=== PATIENT | female | born 1955 | race Caucasian/White ===

== ENCOUNTER 2018-09-18 08:51 | Day surgery (SDC) | payer OTHER ==
[2018-09-17 10:04] VITALS: BMI 21.5
--- NOTE | 2018-09-17 22:37 | HP ---
HISTORY OF PRESENT ILLNESS: Ms. Marlin Montiel is a very pleasant 63-year- old female comes in for a colonoscopy because of chronic diarrhea. The patient has been having diarrhea over the last several months. Stools are soft to watery. She has had stool studies negative, which came back negative for any pathology. She also empirically treated with some antibiotics. The patient has this diarrhea with some lower abdominal cramping off and on. There is no history of any weight loss. No history of any dysuria. The patient had colonoscopy I believe 5 years ago. This exam was negative. There is no family history of colon cancer. The patient is undergoing colonoscopy because of chronic diarrhea. ALLERGIES: NONE. SOCIAL HISTORY: The patient does not smoke or drink alcohol socially. MEDICAL ILLNESSES: 1. Depression. 2. Hyperlipidemia. 3. Tubal ligation. 4. D and C. PHYSICAL EXAMINATION: GENERAL: She is thin built, appears comfortable. VITAL SIGNS: Pulse is 72, blood pressure 110/76. CARDIOVASCULAR: First and second heart sounds. LUNGS: Clear to auscultation. ABDOMEN: Soft. No organomegaly. No tenderness. No masses. ADMITTING DIAGNOSIS: Chronic diarrhea. PLAN: Colonoscopy. Job ID: [id number] [facility]
--- NOTE | 2018-09-18 11:45 | OP ---
DATE OF PROCEDURE: 09/18/2018 PROCEDURE PERFORMED: Colonoscopy with biopsy. PREOPERATIVE DIAGNOSES: Chronic diarrhea, negative stool exam, undergoing colonoscopy. POSTOPERATIVE DIAGNOSES: Mild colitis in the rectum and lower sigmoid colon area. Otherwise, the mucosa appeared normal. Although, the patient has a history of diarrhea, she had quite a bit of fecal material coating the mucosa throughout the colon. DESCRIPTION OF PROCEDURE: The patient was placed on her left lateral position and was given sedation by Anesthesia Department. A rectal exam was done before the scope was advanced into the rectum. No lesions felt on rectal exam. A [employer]ax video colonoscope was introduced into the rectum and advanced all the way into the cecum. Although, the patient had a history of chronic diarrhea, on endoscopy, she had large amount of fecal material coating the mucosa. Water was irrigated and washed out. The appendiceal orifice, ileocecal wall, cecum, no pathology seen. Withdrawal of scope in the cecum to ascending colon, hepatic flexure, no pathology seen. The transverse colon, splenic flexure, descending colon, no pathology seen. She had colitis over the lower sigmoid colon area and rectum, the patchy mucosal edema, erythema , and occasional ulceration. A biopsy obtained from the area. Rectum showed hemorrhoids. DISCHARGE PLANNING: This is a 63-year-old female with chronic diarrhea over the last several months. She has had negative stool studies. She came for colonoscopy and was found to have colitis. This appeared mild over the rectum and also lower sigmoid. Biopsies were obtained. DISCHARGE RECOMMENDATIONS: 1. We will await the colonic biopsy. 2. Resume all medications as before. 3. To come back in 2 weeks. Job ID: [id number] [facility]
[2018-09-18] MEDS ORDERED: PROPOFOL 200 MG/20 ML VIAL ONE (14:48)
[2018-09-18] MEDS ORDERED: Lidocaine 1% PF 5 ML VIAL ONE (14:48)
--- NOTE | 2018-09-21 09:32 | OP ---
DATE OF PROCEDURE: ADDENDUM: Please add in the dictation that she had random biopsies obtained from the ascending colon, transverse colon to rule out microscopic colitis. Job ID: [id number]
== END 2018-09-18 11:13 | disposition home or self-care (01) ==
LOC: SDC 08:51
PROVIDERS: ATTEND Internal Medicine Gastroenterology
PROC: 0DBK8ZX Excision of Ascending Colon, Via Natural or Artificial Opening Endoscopic, Diagnostic (ICD-10-PCS; principal; 2018-09-18)
PROC: 0DBL8ZX Excision of Transverse Colon, Via Natural or Artificial Opening Endoscopic, Diagnostic (ICD-10-PCS; principal; 2018-09-18)
PROC: 0DBN8ZX Excision of Sigmoid Colon, Via Natural or Artificial Opening Endoscopic, Diagnostic (ICD-10-PCS; principal; 2018-09-18)
DX: K52.832 Lymphocytic colitis (principal); K64.9 Unspecified hemorrhoids; F32.9 Major depressive disorder, single episode, unspecified; E78.5 Hyperlipidemia, unspecified; Z98.51 Tubal ligation status; Z79.82 Long term (current) use of aspirin; Z79.899 Other long term (current) drug therapy; Z98.890 Other specified postprocedural states
CPT/HCPCS: 88305; J2001; J2704

== ENCOUNTER 2019-07-13 10:16 | Outpatient (CLI) | payer OTHER ==
--- NOTE | 2019-07-13 10:55 | RAD ---
LUMBAR SPINE SERIES THREE VIEWS: HISTORY: Back pain. FINDINGS: Vertebral bodies are normal in height. There is moderate disk narrowing at L2-L3. There is severe dis k narrowing at L4-L5. At the L5-S1 level there is left sided pseudoarthrosis of the left L5 transvers e process with the sacrum associated with some minimal scoliotic change, convex to the left. Vascular calcifications are noted. IMPRESSION: Moderate arthritic changes of the spine. POS: [facility]
== END 2019-07-13 10:17 | disposition home or self-care (01) ==
LOC: RAD 10:16
PROVIDERS: ATTEND Family Medicine
DX: M54.5 Low back pain (principal); M46.96 Unspecified inflammatory spondylopathy, lumbar region
CPT/HCPCS: 72100

== ENCOUNTER 2021-08-08 14:41 | Outpatient (CLI) | payer MEDICARE, OTHER | END 2021-08-08 14:42 | disposition home or self-care (01) | LOC: BICMAMMO 14:41 | PROVIDERS: ATTEND Family Medicine | DX: Z12.31 Encounter for screening mammogram for malignant neoplasm of breast (principal); Z13.820 Encounter for screening for osteoporosis; Z78.0 Asymptomatic menopausal state; M85.89 Other specified disorders of bone density and structure, multiple sites | CPT/HCPCS: 77063; 77067; 77080 ==